=== PATIENT | male | born 1995 | race Caucasian/White ===

== ENCOUNTER 2017-07-12 15:59 | Emergency (ER) | payer OTHER ==
--- NOTE | 2017-07-12 16:25 | UC ---
Abdominal Pain Male HPI - HPI Summary HPI Summary: 21 YEAR OLD MALE PRESENTS WITH SEVERE RLQ PAIN. - History of Current Complaint Chief Complaint: UCGI Stated Complaint: ABD PAIN Time Seen by Provider: 07/12/17 16:13 Hx Obtained From: Patient Onset/Duration: Sudden Onset Severity Initially: Moderate Severity Currently: Moderate Pain Scale Used: 0-10 Numeric - 10 - Allergies/Home Medications Allergies/Adverse Reactions: Allergies Allergy/AdvReac Type Severity Reaction Status Date / Time No Known Allergies Allergy Verified 07/12/17 16:08 Home Medications: Home Medications NK [No Home Medications Reported] 07/12/17 [History Confirmed 07/12/17] PMH/Surg Hx/FS Hx/Imm Hx Previously Healthy: Yes - Surgical History Surgical History: None - Social History Alcohol Use: Occasionally Substance Use Type: Marijuana Smoking Status (MU): Current Some Day Smoker Review of Systems Constitutional: Negative Skin: Negative Eyes: Negative ENT: Negative Respiratory: Negative Cardiovascular: Negative Gastrointestinal: Abdominal Pain - RLQ Genitourinary: Negative Motor: Negative Neurovascular: Negative Musculoskeletal: Negative Neurological: Negative Psychological: Negative All Other Systems Reviewed And Are Negative: Yes Physical Exam Triage Information Reviewed: Yes Appearance: Well-Appearing Vital Signs: Initial Vital Signs Temp 36.8 C 07/12/17 16:03 Pulse 66 07/12/17 16:03 Resp 18 07/12/17 16:03 BP 137/64 07/12/17 16:03 Pulse Ox 100 07/12/17 16:03 Eye Exam: Normal ENT Exam: Normal Dental Exam: Normal Neck exam: Normal Neck: Positive: 1 Respiratory Exam: Normal Cardiovascular Exam: Normal Abdomen Description: Positive: Other: - RLQ PAIN Musculoskeletal Exam: Normal Neurological Exam: Normal Psychological Exam: Normal Skin Exam: Normal Abd Pain Male Course/Dx - Course Course Of Treatment: PATIENT SENT TO [facility] [place] ER TO RULE OUT APPY - Differential Dx/Clinical Impression Provider Diagnoses: RLQ PAIN Discharge - Discharge Plan Condition: Stable Disposition: [facility] Patient Education Materials: Acute Abdominal Pain (ED) Referrals: [facility] [Primary Care Provider] -
[2017-07-12 16:48] VITALS: BP 148/69
== END 2017-07-12 16:55 | disposition short-term general hospital (02) ==
LOC: UCEAST 15:59
DX: R10.31 Right lower quadrant pain (principal); F17.200 Nicotine dependence, unspecified, uncomplicated
CPT/HCPCS: 99203; G0463

== ENCOUNTER 2017-07-12 17:03 | Emergency (ER) | payer OTHER ==
[2017-07-12] MEDS ORDERED: Morphine INJ* 2 MG/ML 1 ML CARPUJECT IV ONE (17:43)
[2017-07-12] MEDS ORDERED: Ondansetron INJ* 2 MG/ML VIAL IV ONE (17:43)
[2017-07-12 18:25] LABS: Hematocrit 45 % (42-52); Hemoglobin 15.2 g/dl (14.0-18.0); Mean Corpuscular HGB Conc 34 g/dl (31-36); Mean Corpuscular Hemoglobin 29 pg (27-31); Mean Corpuscular Volume 86 fL (80-94); Mean Platelet Volume 7 um3 (7.4-10.4); Red Blood Count 5.23 10^6/ul (4.0-5.4); Red Cell Distribution Width 13 % (10.5-15); White Blood Count 11.1 10^3/ul (3.5-10.8)
[2017-07-12 18:36] LABS: Albumin 4.5 g/dL (3.2-5.2); BUN/Creatinine Ratio 11.1 (8-20); C Reactive Protein 14.78 mg/L (< 5.00); Calcium 9.4 mg/dL (8.6-10.3); EGFR African American 139.8 (>60); EGFR Non-African American 108.7 (>60); Globulin 3.4 g/dL (2-4); Total Bilirubin 0.4 mg/dL (0.2-1.0); Total Protein 7.9 g/dL (6.4-8.9)
[2017-07-12] MEDS ORDERED: Iohexol 300* (CONTRAST) 10 ML SDV IV ONE (18:48)
[2017-07-12 19:47] LABS: Erythrocyte Sed Rate 15 mm/Hr (0-14)
--- NOTE | 2017-07-12 20:54 | RAD ---
Indication: Right lower quadrant pain. Contrast: Administered 97.0 ml of OMNIPAQUE 300 mg/ml CT of the abdomen and pelvis was performed after oral and IV contrast administration. Coronal and sagittal reconstructed images were obtained. The lung bases demonstrate no pleural fluid, nodules or masses. Heart is of normal size without evidence of pericardial effusion. Liver is normal in size. No focal lesions or intrahepatic ductal dilatation is noted. Spleen is normal in size. The gallbladder demonstrates no calcified gallstones. No pericholecystic fluid or wall thickening is identified. The common duct is not dilated. The pancreas indicates no mass or pancreatic duct dilatation. There is no retroperitoneal lymphadenopathy noted. Aorta and inferior vena cava are unremarkable. The kidneys demonstrate symmetric nephrograms without evidence of focal lesions. No hydronephrosis is noted. CT of the pelvis demonstrates contrast in the right colon. The appendix is visualized and appears to be of normal caliber and is filled with air. There is however reticulation of fat in the mesentery just superior and to the right of the dome of the urinary bladder. There is suggestion of distended vessels in the omental fat and this may represent omental infarct. Follow-up exam is suggested. No dilated loops of bowel are noted. The urinary bladder is unremarkable. The prostate is otherwise unremarkable. IMPRESSION: Normal appendix. No abnormal fluid collections are noted. Reticulation of fat in the right lower quadrant omentum with suggestion of engorgement of vessels. The possibility of an omental infarct should BE considered. No bowel obstruction is noted.
--- NOTE | 2017-07-12 21:11 | ED ---
Abdominal Pain/Male - HPI Summary HPI Summary: 21 male presents to ED from with complaints of umbilical pain that has moved into RLQ that began yesterday evening and worsened into today. Patient states pain comes and goes, worse with movement/walking and palpation. Is not related to food. Has been somewhat constipated for the past day. LBM was earlier today, small. Patient denies blood, fever/chills, urinary and genitalia symptoms. Denies nausea and vomiting. 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 NO other PMHx. - History of Current Complaint Chief Complaint: EDAbdPain Stated Complaint: ABD PAIN Time Seen by Provider: 07/12/17 17:52 Hx Obtained From: Patient Onset/Duration: Sudden Onset, Lasting Days - 2 Timing: Intermittent, Lasting Minutes Severity Initially: Moderate Severity Currently: None Pain Intensity: 0 Pain Scale Used: 0-10 Numeric Location: Discrete At: RLQ, Umbilical Radiates: No Character: Sharp, Colicy Aggravating Factor(s): Movement Alleviating Factor(s): Nothing, Spontaneous Resolution Associated Signs And Symptoms: Positive: Constipation. Negative: Back Pain, Blood in Stool, Urinary Symptoms, Decreased Appetite, Nausea, Vomiting, Diarrhea - Allergies/Home Medications Allergies/Adverse Reactions: Allergies Allergy/AdvReac Type Severity Reaction Status Date / Time No Known Allergies Allergy Verified 07/12/17 16:08 PMH/Surg Hx/FS Hx/Imm Hx Endocrine/Hematology History: Denies: Hx Diabetes, Hx Thyroid Disease Cardiovascular History: Denies: Hx Hypertension Respiratory History: Denies: Hx Asthma, Hx Chronic Obstructive Pulmonary Disease (COPD) GI History: Denies: Hx Ulcer - Surgical History Surgery Procedure, Year, and Place: n/a - Immunization History Immunizations Up to Date: Yes Infectious Disease History: No Infectious Disease History: Denies: Hx Clostridium Difficile, Hx Hepatitis, Hx Human Immunodeficiency Virus (HIV), Hx of Known/Suspected MRSA, Hx Shingles, Hx Tuberculosis, Hx Known/ Suspected VRE, Hx Known/Suspected VRSA, History Other Infectious Disease, Traveled Outside the [place] in Last 30 Days - Family History Known Family History: Positive: None - Social History Alcohol Use: Occasionally Substance Use Type: Reports: Marijuana Smoking Status (MU): Current Some Day Smoker Review of Systems Constitutional: Negative Cardiovascular: Negative Respiratory: Negative Positive: Abdominal Pain Musculoskeletal: Negative Neurological: Negative All Other Systems Reviewed And Are Negative: Yes Physical Exam Triage Information Reviewed: Yes Vital Signs On Initial Exam: Initial Vitals Temp Pulse Resp BP Pulse Ox 98 F 76 14 124/79 98 07/12/17 17:10 07/12/17 17:10 07/12/17 17:10 07/12/17 17:10 07/12/17 17:10 Vital Signs Reviewed: Yes Appearance: Positive: Well-Appearing, No Pain Distress, Well-Nourished Skin: Positive: Warm, Skin Color Reflects Adequate Perfusion, Dry. Negative: Cold, Numb, Cyanosis @, Jaundiced, Pale, Erythema @ Head/Face: Positive: Normal Head/Face Inspection Eyes: Positive: Conjunctiva Clear ENT: Positive: Normal ENT inspection, Hearing grossly normal, Pharynx normal, TMs normal. Negative: TM bulging, TM dull, Muffled/hoarse voice Neck: Positive: Supple, Nontender, No Lymphadenopathy Respiratory/Lung Sounds: Positive: Clear to Auscultation, Breath Sounds Present. Negative: Decreased Breath Sounds, Rales, Rhonchi, Wheezes Cardiovascular: Positive: Normal, RRR, Pulses are Symmetrical in both Upper and Lower Extremities. Negative: Murmur, Rub Abdomen Description: Positive: No Organomegaly, Soft, Other: - tenderness RLQ, umbilical with some on LLQ on palpation. negative psoas, rebound and rovsing. Negative: Bruit, CVA Tenderness (R), CVA Tenderness (L), Distended, Guarding, McBurney's Point Tenderness, Peritoneal Signs Bowel Sounds: Positive: Present Musculoskeletal: Positive: Normal, Strength/ROM Intact. Negative: Pain @ Neurological: Positive: Normal, Sensory/Motor Intact, Alert, Oriented to Person Place, Time, CN Intact II-III - [place] Coma Scale Coma Scale Total: 15 Diagnostics - Vital Signs Vital Signs Temp Pulse Resp BP Pulse Ox 07/12/17 20:35 18 07/12/17 17:10 98 F 76 14 124/79 98 - Laboratory Lab Results: Lab Results 07/12/17 07/12/17 07/12/17 Range/Units 16:25 16:25 18:25 WBC 11.1 H (3.5-10.8) 10^3/ul RBC 5.23 (4.0-5.4) 10^6/ul Hgb 15.2 (14.0-18.0) g/dl Hct 45 (42-52) % MCV 86 (80-94) fL MCH 29 (27-31) pg MCHC 34 (31-36) g/dl RDW 13 (10.5-15) % Plt Count 307 (150-450) 10^3/ul MPV 7 L (7.4-10.4) um3 Neut % (Auto) 73.6 (38-83) % Lymph % (Auto) 16.5 L (25-47) % [place] % (Auto) 6.0 (1-9) % Eos % (Auto) 3.6 (0-6) % Baso % (Auto) 0.3 (0-2) % Absolute Neuts (auto) 8.1 H (1.5-7.7) 10^3/ul Absolute Lymphs (auto) 1.8 (1.0-4.8) 10^3/ul Absolute Monos (auto) 0.7 (0-0.8) 10^3/ul Absolute Eos (auto) 0.4 (0-0.6) 10^3/ul Absolute Basos (auto) 0 (0-0.2) 10^3/ul Absolute Nucleated RBC 0 10^3/ul Nucleated RBC % 0 ESR 15 H (0-14) mm/Hr Sodium 137 (133-145) mmol/L Potassium 4.0 (3.5-5.0) mmol/L Chloride 100 L (101-111) mmol/L Carbon Dioxide 30 (22-32) mmol/L Anion Gap 7 (2-11) mmol/L BUN 10 (6-24) mg/dL Creatinine 0.90 (0.67-1.17) mg/dL Est GFR ( Amer) 139.8 (>60) Est GFR (Non-Af Amer) 108.7 (>60) BUN/Creatinine Ratio 11.1 (8-20) Glucose 89 (70-100) mg/dL Lactic Acid 0.8 (0.5-2.0) mmol/L Calcium 9.4 (8.6-10.3) mg/dL Total Bilirubin 0.40 (0.2-1.0) mg/dL AST 19 (13-39) U/L ALT 19 (7-52) U/L Alkaline Phosphatase 77 (34-104) U/L Total Creatine Kinase 110 (10-223) U/L C-Reactive Protein 14.78 H (< 5.00) mg/L Total Protein 7.9 (6.4-8.9) g/dL Albumin 4.5 (3.2-5.2) g/dL Globulin 3.4 (2-4) g/dL Albumin/Globulin Ratio 1.3 (1-3) Lipase 34 (11.0-82.0) U/L Result Diagrams: 07/12/17 16:25 07/12/17 16:25 Lab Statement: Any lab studies that have been ordered have been reviewed, and results considered in the medical decision making process. - CT abd/pelvis CT Interpretation: Positive (See Comments) - Normal appendix. No abnormal fluid collections are noted. Reticulation of fat in the right lower quadrant omentum with suggestion of engorgement of vessels. The possibility of an omental infarct should BE considered. No bowel obstruction is noted. CT Interpretation Completed By: Radiologist Re-Evaluation - Re-Evaluation First Eval Re-Evaluation Time: 19:40 Change: Improved - feeling much better, updated on lab results, waiting for CT Abdominal Pain Fem Course/Dx - Course Course Of Treatment: CT obtained and showed possible omentum infarct. Labs and urinalysis unremarkable other than slightly elevated WBC and CRP. Given pain medication and had relief. Patient was pain free throughout stay. Spoke with Dr Campoverde at 9:24pm who stated to have follow up in office tomorrow, no surgical consult required at this time. Patient feeling better. No other emergent etiology/concern at this time. Follow up. Aware of worsening signs and symptoms. Recommend heating pad and ibuprofen if returns. Plenty of fluids. - Diagnoses Differential Diagnosis/HQI/PQRI: Appendicitis, Bowel Obstruction, Constipation, Renal Colic, Ureteral Stone, Urinary Tract Infection, Other Provider Diagnoses: Colicky RLQ abdominal pain, Omental infarction - Provider Notifications Discussed Care Of Patient With: Dr Campoverde Time Discussed With Above Provider: 21:25 Instructed by Provider To: Have Pt Call For Appt. Discharge - Discharge Plan Condition: Stable Disposition: HOME Patient Education Materials: Abdominal Pain (ED) Forms: *School Release Referrals: [facility] [Primary Care Provider] - Vineet Campoverde MD [Medical Doctor] - Additional Instructions: Please call and make an appointment with general surgery tomorrow morning around 8:30am. Any new or worsening symptoms please return/seek medical attention immediately, as discussed. Ibuprofen and heating pad for pain and discomfort. Rest and fluids. Follow up with PCP.
[2017-07-12 21:57] VITALS: BP 119/72
== END 2017-07-12 21:55 | disposition home or self-care (01) ==
LOC: ED 17:03
DX: R10.31 Right lower quadrant pain (principal); K55.069 Acute infarction of intestine, part and extent unspecified; Z72.0 Tobacco use; K59.00 Constipation, unspecified
CPT/HCPCS: 36415; 74177; 80053; 82550; 83605; 83690; 85025; 85652; 86140; 87040; 96374; 96375; 99283; J2270; J2405; Q9967